=== PATIENT | male | born 1950 | race Caucasian/White ===

== ENCOUNTER 2016-09-27 10:43 | Inpatient (IN) | payer MEDICARE, OTHER ==
[~2016-09-27 10:43] MED LIST: ACETAMINOPHEN650 M4 PO; ADULT ASPIRIN81 MG PO; ALBUTEROL I0.5 ML/EA INH; ALBUTEROL SULF8.5 GM IH; ALBUTEROL17 GM INH; ASPIR 8181 M1 PO; B12; BROVANA15 MCG/2 M INH; CULTURELLE1 EAC1 PO; DALIRESP500 MCG PO; DUONEB 2.5-0.5 M3 ML IH; DUONEB 2.5-0.5MG3 M1 AERO NEB; IPRAT-ALBUT 0.5-3 ML IH; LEVAQUIN750 M1 PO; LEVAQUIN750 MG PO; METAMUCIL0.52 G1 PO; MILK OF MAGNESIA PO; MUCINEX; MUCINEX1200 MG PO; MULTIVITAMIN1 TAB PO; MULTIVITAMINS1 EAC6 PO; NORCO 10-325 T1 EACH PO; NORVASC2.5 MG PO; PAIN RELIEF650 MG PO; PREDNISONE10 M1 PO; PREDNISONE10 MG PO; PREDNISONE5 M1 PO; PREDNISONE5 MG PO; PRIMIDONE50 M1 PO; PROAIR HFA8.5 GM INH; PROBIOTIC1 EA10 PO; PROTONIX40 M2 PO; PULMICORT0.5 MG/2 M INH; SIMVASTATIN20 M1 PO; SIMVASTATIN20 MG PO; SPIRIVA18 MC1 IH; SPIRIVA18 MC1 INH; SPIRIVA18 MCG IH; SYMBICORT 160-1 PUFF INH; SYMBICORT 160-4.6 GM INH; SYMBICORT 16010.2 GM IH; THEOPHYLLINE A300 M1 PO; THEOPHYLLINE A400 MG PO; TUMS300 M1 PO; TYLENOL650 MG PO; VITAMIN B-121000 MC1 PO; VITAMIN D; VITAMIN D32000 UNI2 PO
[2016-09-27 11:32] LABS: BASO % 0.2 % (0-2); EOS % 0.3 % (0-7); HCT-HEMATOCRIT 45.2 % (36.0-53.5); HGB-HEMOGLOBIN 15.2 gm/dl (13.5-17.0); IMMATURE GRANULOCYTES ABSOLUTE 0.01 tho/cmm (0-0.03); IMMATURE GRANULOCYTES PERCENT 0.2 % (0-0.3); LYMPH ABSOLUTE COUNT 0.4 tho/cmm (0.8-4.5); MCHC MEAN CORPUSCULAR HGB CONC 33.6 % (32.0-36.0); MCV (MEAN CELL VOLUME) 95.2 fl (82.0-96.0); MEAN PLATELET VOLUME 10.6 cmc (9.4-12.4); MONO % 9.7 % (0-12); MONOCYTE ABSOLUTE COUNT 0.6 tho/cmm (0.0-1.2); NEUTROPHIL ABSOLUTE COUNT 5.1 tho/cmm (1.6-8.0); NEUTROPHIL-AUTOMATED 5.1 tho/cmm (1.6-8.0); NEUTROPHILS % 82.6 % (40-80); PLATELET COUNT 149 tho/cmm (150-450); RED BLOOD COUNT 4.75 mil/cmm (4.40-5.70); RED CELL DISTRIBUTION WIDTH 14.5 % (12.4-16.4); WHITE BLOOD COUNT 6.2 tho/cmm (4.0-10.0)
[2016-09-27 11:45] LABS: ANION GAP 11 mmol/L (0-20); BLOOD UREA NITROGEN 9 mg/dl (6-24); CALCIUM 8.7 mg/dl (8.5-10.5); CARBON DIOXIDE-VENOUS 29 mmol/L (22-32); CHLORIDE 101 mmol/l (96-110); CREATININE 0.75 mg/dl (0.60-1.30); GLUCOSE 90 mg/dL (70-110); POTASSIUM 4.1 mmol/L (3.7-5.1); SODIUM 137 mmol/L (135-145); eGFR VALUE FOR BLACK >90 mL/Min
[2016-09-27 13:41] LABS: PROCALCITONIN 0.05 ng/ml (0.05-0.09)
[2016-09-27 13:49] LABS: URINE BILIRUBIN NEGATIVE (NEG); URINE BLOOD MODERATE (NEG); URINE GLUCOSE (UA) NEGATIVE (NEG); URINE KETONE LARGE (NEG); URINE LEUKOCYTE ESTERASE NEGATIVE (NEG); URINE NITRITE NEGATIVE (NEG); URINE PROTEIN NEGATIVE (NEG); URINE SPECIFIC GRAVITY 1.015 (1.003-1.030)
[2016-09-27 13:50] LABS: URINE APPEARANCE CLEAR; URINE COLOR YELLOW
[2016-09-27 13:59] LABS: URINE EPITHELIAL CELLS 0 /[HPF] (0-10); URINE WBC 0 /[HPF] (0-5)
[2016-09-28 05:58] LABS: HGB-HEMOGLOBIN 13.7 gm/dl (13.5-17.0); PLATELET COUNT 127 tho/cmm (150-450)
[2016-09-28] MEDS ORDERED: LEVAQUIN750 M1 PO (10:09)
== END 2016-09-28 11:15 | DRG 192 ==
LOC: EDMED 10:43 → EMR2 13:42 → 5WE 14:30
PROVIDERS: Emergency Medicine; ADMIT Family Medicine
PROC: 5A09357 Assistance with Respiratory Ventilation, Less than 24 Consecutive Hours, Continuous Positive Airway Pressure (ICD-10-PCS; principal; 2016-09-27)
DX: J44.1 Chronic obstructive pulmonary disease with (acute) exacerbation (principal); D69.6 Thrombocytopenia, unspecified; Z99.81 Dependence on supplemental oxygen; G47.33 Obstructive sleep apnea (adult) (pediatric); M47.9 Spondylosis, unspecified; N40.1 Benign prostatic hyperplasia with lower urinary tract symptoms; R35.1 Nocturia; E66.9 Obesity, unspecified; Z68.32 Body mass index [BMI] 32.0-32.9, adult; E78.00 Pure hypercholesterolemia, unspecified; I45.10 Unspecified right bundle-branch block; I25.10 Atherosclerotic heart disease of native coronary artery without angina pectoris; G25.0 Essential tremor; Z79.52 Long term (current) use of systemic steroids; E88.09 Other disorders of plasma-protein metabolism, not elsewhere classified; Z87.891 Personal history of nicotine dependence
CPT/HCPCS: J1650; J1956; J2930; J3480; J7030; Q9967